=== PATIENT | male | born 1985 | race Two or more races ===

== ENCOUNTER 2018-04-05 04:14 | Emergency (ER) | payer SELFPAY ==
[~2018-04-05] VITALS: Ht 177.8 cm; Wt 74.8 kg
[2018-04-05 04:28] VITALS: BP 132/96
== END 2018-04-05 04:34 ==
LOC: ER 04:18
DX: S00.411A Abrasion of right ear, initial encounter (principal); F15.10 Other stimulant abuse, uncomplicated; Z02.9 Encounter for administrative examinations, unspecified; W34.00XA Accidental discharge from unspecified firearms or gun, initial encounter; Y93.89 Activity, other specified; Y99.8 Other external cause status; Y92.89 Other specified places as the place of occurrence of the external cause

== ENCOUNTER 2020-02-21 19:38 | Emergency (ER) | payer SELFPAY ==
[~2020-02-21] VITALS: Ht 177.8 cm; Wt 99.8 kg
[2020-02-21 19:40] VITALS: BP 117/76
[2020-02-21] MEDS ORDERED: SODIUM CHLORIDE 0.9% 1,000 ML IVB ONE (19:53)
[2020-02-21 22:13] LABS: Basophils # (auto) 0 10 ^3/uL (0-0.2); Basophils % (auto) 0.1 % (0.0-2.0); Eosinophils # (auto) 0 10 ^3/uL (0-0.8); Eosinophils % (auto) 0.1 % (0.0-7.0); Hematocrit 47.6 % (41.0-53.0); Hemoglobin 15.8 g/dL (13.5-17.5); Lymphocytes # (auto) 0.8 10 ^3/uL (0.4-5.4); Lymphocytes % (auto) 6.2 % (10.0-50.0); Mean Corpuscular Hemoglobin 29.9 pg (28.0-32.0); Mean Corpuscular Hgb Conc. 33.1 g/dL (32.0-36.0); Mean Corpuscular Volume 90.2 fL (80.0-100.0); Monocytes # (auto) 0.7 10 ^3/uL (0-1.3); Monocytes % (auto) 5.5 % (0.0-12.0); Neutrophils # (auto) 11.6 10 ^3/uL (1.6-8.6); Neutrophils % (auto) 88.1 % (37.0-80.0); Platelet Count (auto) 256 10^3/uL (140-450); Red Blood Cells 5.28 10^6/uL (4.5-5.90); Red Cell Distribution Width 13.6 % (11.8-14.3); White Blood Cell 13.2 10^3/uL (4.4-10.8)
[2020-02-21 22:31] LABS: Albumin 4.3 g/dL (3.4-5.0); BUN/Creatinine Ratio 14.6; Calcium 8.8 mg/dL (8.5-10.1); Potassium 4.3 mmol/L (3.5-5.1)
[2020-02-21 22:34] LABS: Total Protein 7.9 g/dL (6.4-8.2)
== END 2020-02-21 22:07 | disposition home or self-care (01) ==
LOC: ER 19:38 → EDBD 19:38 → ER 22:07
DX: R41.82 Altered mental status, unspecified (principal)
CPT/HCPCS: 36415; 70450; 72125; 80053; 80320; 85025; 93005

== ENCOUNTER 2024-01-27 02:21 | Emergency (ER) | payer MEDICAID, OTHER ==
[~2024-01-27] VITALS: Ht 177.8 cm; Wt 82.2 kg
[2024-01-27 02:53] LABS: Basophils # (auto) 0.1 10 ^3/uL (0-0.2); Basophils % (auto) 0.6 % (0.0-2.0); Eosinophils # (auto) 0.1 10 ^3/uL (0-0.8); Eosinophils % (auto) 0.7 % (0.0-7.0); Hematocrit 44.1 % (41.0-53.0); Hemoglobin 14.7 g/dL (13.5-17.5); Lymphocytes # (auto) 1.4 10 ^3/uL (0.4-5.4); Lymphocytes % (auto) 11.9 % (10.0-50.0); Mean Corpuscular Hemoglobin 29.7 pg (28.0-32.0); Mean Corpuscular Hgb Conc. 33.3 g/dL (32.0-36.0); Mean Corpuscular Volume 89.2 fL (80.0-100.0); Monocytes # (auto) 1.1 10 ^3/uL (0-1.3); Monocytes % (auto) 8.9 % (0.0-12.0); Neutrophils # (auto) 9.5 10 ^3/uL (1.6-8.6); Neutrophils % (auto) 77.9 % (37.0-80.0); Red Blood Cells 4.94 10^6/uL (4.5-5.90); Red Cell Distribution Width 13.6 % (11.8-14.3); White Blood Cell 12.2 10^3/uL (4.4-10.8)
[2024-01-27 02:55] LABS: Chloride 105 mmol/L (98-107); Potassium 4.4 mmol/L (3.5-5.1); Sodium 138 mmol/L (136-145)
[2024-01-27 02:56] LABS: Anion Gap 4 (5-15); Carbon Dioxide 29 mmol/L (20-30)
[2024-01-27 02:57] LABS: Calcium 9.9 mg/dL (8.7-10.4)
[2024-01-27 03:01] LABS: BUN/Creatinine Ratio 10.8 (10.0-20.0); Blood Urea Nitrogen 10 mg/dL (9-23); Glucose 123 mg/dL (74-106)
[2024-01-27] MEDS ORDERED: METR-344 PO (03:59)
[2024-01-27] MEDS ORDERED: CEPH250C PO (03:59)
[2024-01-27] MEDS ORDERED: PANT40TA2 PO (03:59)
[2024-01-27] MEDS: MAALOX PLUS or MAALOX 30 ML PO ONE (04:20)
[2024-01-27] MEDS: DONNATAL 5ml ORAL Elix (BELLADONNA ALK-PHENOBARB) PO ONE (04:20)
[2024-01-27] MEDS: LIDOCAINE VISCOUS 2% 15ML UD PO ONE (04:20)
[2024-01-27 04:23] VITALS: BP 143/88; PULSE 78; RESP 19; TEMP 98.2; O2SAT 97
== END 2024-01-27 04:24 | disposition home or self-care (01) ==
LOC: ER 02:21
DX: K29.70 Gastritis, unspecified, without bleeding (principal)
CPT/HCPCS: 36415; 80048; 85025